=== PATIENT | female | born 1955 | race Caucasian/White ===

== ENCOUNTER → 2017-04-25 | Outpatient (CLI) | payer BC ==
--- NOTE | 2017-04-25 13:23 | RAD ---
DATE: 04/25/2017. EXAM: DIGITAL SCREEN BILAT W/CAD HISTORY: Routine screening COMPARISON: Previous study from 08/24/2012 This study was interpreted with the benefit of Computerized Aided Detection (CAD). FINDINGS: Breast Density: SCATTERED The breast parenchyma shows scattered fibroglandular densities. Breast parenchyma level B. The skin and nipples are within normal limits. No suspicious calcifications, spiculated masses or areas of architectural distortion. Benign bilateral calcifications. IMPRESSION: No mammographic evidence of malignancy. No significant change from previous mammogram from 2012. BI-RADS CATEGORY: 2 BENIGN FINDING(S) RECOMMENDED FOLLOW-UP: 12M 12 MONTH FOLLOW-UP PQRS compliance statement: Patient information was entered into a reminder system with a target due date 04/25/2018 for the next mammogram. Mammography is a sensitive method for finding small breast cancers, but it does not detect them all and is not a substitute for careful clinical examination. A negative mammogram does not negate a clinically suspicious finding and should not result in delay in biopsying a clinically suspicious abnormality. "Our facility is accredited by the [employer] Mammography Program."
== END | disposition home or self-care (01) ==
LOC: MAMMO 12:50
PROVIDERS: ATTEND Family Medicine
DX: Z12.31 Encounter for screening mammogram for malignant neoplasm of breast (principal)
CPT/HCPCS: G0202; 77067

== ENCOUNTER → 2017-08-17 | Outpatient (CLI) | payer BC | END | disposition home or self-care (01) | LOC: CT 12:51 | DX: M47.892 Other spondylosis, cervical region (principal); M48.02 Spinal stenosis, cervical region | CPT/HCPCS: 72125 ==

== ENCOUNTER → 2018-06-21 | Outpatient (CLI) | payer BC ==
--- NOTE | 2018-06-21 10:55 | RAD ---
CT study chest without contrast Clinical indications: Hemoptysis. COMPARISON: June 20, 2012. TECHNIQUE: Noncontrast helical CT scanning of the chest was performed. Without contrast, the sensitivity to detect organ pathology is decreased. PQRS compliance Statement One or more of the following individualized dose reduction techniques were utilized for this study: 1. Automated exposure control 2. Adjustment of the mA and/or kV according to patient size 3. Use of iterative reconstruction technique FINDINGS: Again seen are mediastinal lymph nodes which have not changed significantly from the previous study. Calcified left hilar lymph nodes are seen due to old granulomatous disease. No focal aneurysmal dilatation of the thoracic aorta is seen. Calcified atheromatous disease of the coronary arteries is seen. The heart size is normal and no pericardial effusion is seen. No pleural effusion or pneumothorax is seen. Chronic consolidative infiltrate is seen within the anterior basal segment of the lateral right lower lobe. This was seen previously and is unchanged. There is new ill-defined infiltrate within the basal segments of the right lower lobe. There is new ill-defined infiltrate within the posterior segment of the right upper lobe. There is new ill-defined infiltrate within the medial segment right middle lobe. There is new ill-defined infiltrate within the inferior segment of the lingula. Calcified granuloma of the lingula is again evident. No new lung mass is seen. Septation of the right mainstem bronchus and bronchus intermedius is again evident. The proximal bronchial tree is patent. However, there is a new small nodule present within the anterior aspect of the distal mainstem bronchus at the origin of the left upper lobe bronchus. This measures 4 mm in size. No adrenal mass is seen. No lytic process is evident. Degenerative spondylosis is seen throughout the thoracic spine and upper lumbar spine. IMPRESSION: New bilateral ill-defined small lung infiltrates consistent with infection or inflammation. There is peribronchial thickening bilaterally consistent with bronchitis. Mild dilatation of distal bronchi within the right lower lobe consistent with mild bronchiectasis. There is a chronic septation within the right mainstem bronchus and bronchus intermedius. There is a new finding of a 4 mm round filling defect involving the anterior wall of the distal left mainstem bronchus at the origin of the left upper lobe bronchus. This may represent mucus or a polyp. Chronic nodular lung infiltrate within the lateral aspect of the anterior basal segment of the right lower lobe which is stable. Calcified atheromatous disease of the coronary arteries. Electronically signed by: Ephraim Jasmine MD (06/21/2018 10:51 AM) [id number]
== END | disposition home or self-care (01) ==
LOC: CT 09:56
PROVIDERS: ATTEND Family Medicine
DX: R04.2 Hemoptysis (principal); R91.8 Other nonspecific abnormal finding of lung field; I70.0 Atherosclerosis of aorta
CPT/HCPCS: 71250

== ENCOUNTER 2018-10-13 15:57 | Observation (INO) | payer BC ==
[~2018-10-13] VITALS: Ht 154.9 cm; Wt 51.5 kg
[2018-10-13 16:40] LABS: BASO # 0.1 x10^3/uL (0.0-0.2); BASO % 1 % (0-3); EOS # 0.2 x10^3/uL (0.0-0.7); EOS % 2 % (0-3); HEMATOCRIT 27.9 % (36.0-47.0); HEMOGLOBIN 8.8 g/dL (12.0-15.5); LYMPH # 3.3 x10^3/uL (1.0-4.8); LYMPH % 32 % (24-48); MEAN CORPUSCULAR HEMOGLOBIN 25 pg (25-35); MEAN CORPUSCULAR HGB CONC 32 g/dL (31-37); MEAN CORPUSCULAR VOLUME 80 fL (79-100); MONO # 0.7 x10^3/uL (0.0-1.1); MONO % 7 % (0-9); NEUT # 5.9 x10^3uL (1.8-7.7); NEUT % 58 % (31-73); PLATELET COUNT 278 x10^3/uL (140-400); RED BLOOD COUNT 3.48 x10^6/uL (3.50-5.40); RED CELL DISTRIBUTION WIDTH 16.4 % (11.5-14.5); WHITE BLOOD COUNT 10.3 x10^3/uL (4.0-11.0)
[2018-10-13 16:47] LABS: BILIRUBIN,URINE NEGATIVE (NEG); CLARITY,URINE CLEAR; COLOR,URINE YELLOW; NITRITE,URINE NEGATIVE (NEG); PROTEIN,URINE NEGATIVE (NEG-TRACE); UROBILINOGEN,URINE 0.2 mg/dL (0.2 mg/dL)
[2018-10-13 16:54] LABS: PROTHROMBIN TIME PATIENT 13.3 SEC (11.7-14.0)
[2018-10-13 16:55] LABS: CALCIUM 9.1 mg/dL (8.5-10.1); CREATININE 0.8 mg/dL (0.6-1.0); POTASSIUM 3.6 mmol/L (3.5-5.1)
[2018-10-13] MEDS ORDERED: NALOXONE 0.4 MG/ML VIAL. IV ONE (17:00)
[2018-10-13] MEDS ORDERED: ALBUTEROL SULFATE 2.5 MG/3 ML NEBU. NEB ONE (17:00)
[2018-10-13 17:02] LABS: ALBUMIN 3.8 g/dL (3.4-5.0); ALBUMIN/GLOBULIN RATIO 1.2 (1.0-1.7); TOTAL BILIRUBIN 0.2 mg/dL (0.2-1.0)
--- NOTE | 2018-10-13 17:03 | RAD ---
Single view chest dated 10/13/2018. Comparison made 01/20/2016. Clinical data indication: Cough and wheezing. Altered mental status. FINDINGS: Single upright portable exam performed. Heart and mediastinal contours are stable. Mild patchy increased density at the right lung base. The lungs are otherwise clear. No consolidation or pleural effusion. No pneumothorax. Pression: No patchy right basilar opacity, likely atelectasis. Electronically signed by: Sudarshan Salter MD (10/13/2018 5:00 PM) [id number]
--- NOTE | 2018-10-13 17:11 | RAD ---
CT head without contrast. CT cervical spine without contrast PQRS statement: CT scans at this facility use dose reduction including either automated exposure control, iterative reconstructions, and /or weight based radiation dosing via mA and kV modification when appropriate to reduce radiation dose to as low as reasonably achievable. HISTORY: Altered mental status. TECHNIQUE: Noncontrast CT imaging of the head and cervical spine multiplanar reconstructions acquired. COMPARISON: CT cervical spine August 17, 2017. CT head findings: No intracranial hemorrhage, mass, hydrocephalus, extra-axial fluid collections or infarction. No acute ischemic changes evident. Orbits, mastoids, paranasal sinuses and bones are unremarkable. IMPRESSION: No acute intracranial CT abnormality. CT cervical spine findings: Advanced arthritis at the C1-C2 atlantodental articulation and joint capsule thickening which may mildly narrow the spinal canal. Precervical junction intact. Cervical vertebral body height and alignment intact. 1 mm anterolisthesis C4 on C5 and 2 mm retrolisthesis C3 on C4 associated with disc disease and facet arthritis. No fracture of the cervical spine. Apical pulmonary emphysema. Cervical disc height loss, disc osteophytes and uncovertebral and facet spurs with spinal canal and neural foraminal stenoses. Paraspinal tissues are unremarkable. Right supraglottic asymmetric soft tissue thickening. IMPRESSION: 1. No acute osseous injury of the cervical spine. 2. Cervical disc disease as described above. 3. Asymmetric soft tissue thickening of the right supraglottic larynx could be inflammatory or neoplastic. Electronically signed by: Cristino Suero MD (10/13/2018 5:08 PM) [id number]
[2018-10-13 17:15] LABS: BACTERIA,URINE 0 /HPF (0-FEW); RBC,URINE 0 /HPF (0-2); WBC,URINE OCC /HPF (0-4)
[2018-10-13 17:24] LABS: AMPHETAMINE/METHAMPHETAMINE NEG (NEG); BARBITURATES NEG (NEG); BENZODIAZEPINES POS (NEG); CANNABINOIDS POS (NEG); COCAINE NEG (NEG); METHADONE NEG (NEG); OPIATES POS (NEG); PHENCYCLIDINE NEG (NEG)
--- NOTE | 2018-10-13 17:39 | PHYS DOC ---
Past Medical History Past Medical History: COPD Additional Past Medical Histor: POOR HISTORIAN Additional Past Surgical Histo: lumbar and neck surgery Alcohol Use: None Drug Use: None Adult General Chief Complaint Chief Complaint: ALTERED MENTAL STATUS HPI HPI Patient is a 63 year old F who was brought up to [facility] by her significant other to have some back xrays done that were ordered by her PCP. Pt reportedly fell out of bed a few weeks ago and has had acute on chronic back pain since that time. Pt was concerned that lying flat for the xrays was going to be painful so she did take pain medicine prior to arrival. Her significant other states it was either 30mg of Oxycontin or 10mg of Percocet. She was getting her xray's and became very groggy and they were having difficult time getting her to respond. Pt was brought to ER as altered mental status. She will awaken to answer questions but immediately falls back asleep. Pt is normally 3 L oxygen dependent for COPD and was placed on 3 L in ER exam room with sats in 80's. When I asked pt if she was hurting anywhere she replied "all over my body". Review of Systems Review of Systems Unable to obtain due to altered mental status. Constitutional: Denies fever or chills Respiratory: Denies cough or shortness of breath [] Cardiovascular: No additional information not addressed in HPI [] GI: Denies abdominal pain, nausea, vomiting, bloody stools or diarrhea [] : Denies dysuria or hematuria [] Musculoskeletal: Denies back pain or joint pain [] Integument: Denies rash or skin lesions [] Neurologic: Denies headache, focal weakness or sensory changes [] Endocrine: Denies polyuria or polydipsia [] All other systems were reviewed and found to be within normal limits, except as documented in this note. Current Medications Current Medications Current Medications Medications (Trade) Dose Ordered Sig/Minnie Start Time Stop Time Status Last Admin Dose Admin Albuterol Sulfate (Ventolin Neb Soln) 2.5 mg 1X ONCE 10/13/18 17:00 10/13/18 17:01 DC 10/13/18 17:12 2.5 MG Methylprednisolone Sodium Succinate (SOLU-Medrol 125MG VIAL) 125 mg 1X ONCE 10/13/18 18:30 10/13/18 18:31 DC 5/17/19 18:33 125 MG Naloxone HCl (Narcan) 0.2 mg 1X ONCE 10/13/18 17:00 10/13/18 17:01 DC 10/13/18 17:12 0.2 MG Allergies Allergies Allergies Coded Allergies Type Severity Reaction Last Updated Verified No Known Drug Allergies 10/13/18 No Physical Exam Physical Exam Constitutional: Well developed, well nourished, no acute distress, non-toxic appearance. Sleepy, difficult to wake. HENT: Gag reflex intact. Eyes: pinpoint pupils, EOMI, conjunctiva normal, no discharge. Neck: Normal range of motion, no tenderness, supple, no stridor. Cardiovascular:Heart rate regular rhythm, no murmur Lungs & Thorax: Diffuse wheezing bilaterally Abdomen: Bowel sounds normal, soft, no tenderness, no masses, no pulsatile masses. Skin: Warm, dry, no erythema, no rash. Back: Low back pain. Extremities: No tenderness, no cyanosis, no clubbing, ROM intact, mild edema of B lower legs. Neurologic: Alert and oriented X 1 to self on arrival, obtunded and will awaken to sternal rub and loud questions, will move all extremities to painful stimulation. Current Patient Data Vital Signs Vital Signs Date Time Temp Pulse Resp B/P (MAP) Pulse Ox O2 Delivery O2 Flow Rate FiO2 10/13/18 18:00 82 19 94 10/13/18 17:13 Nasal Cannula 2.0 10/13/18 16:15 98.5 129/70 (89) 98.5 Lab Values Laboratory Tests Test 10/13/18 16:15 10/13/18 16:30 10/13/18 16:31 Urine Collection Type U cath Urine Color Yellow Urine Clarity Clear Urine pH 5.0 Urine Specific Bennett 1.015 Urine Protein Negative mg/dL (NEG-TRACE) Urine Glucose (UA) Negative mg/dL (NEG) Urine Ketones (Stick) Negative mg/dL (NEG) Urine Blood Negative (NEG) Urine Nitrite Negative (NEG) Urine Bilirubin Negative (NEG) Urine Urobilinogen Dipstick 0.2 mg/dL (0.2 mg/dL) Urine Leukocyte Esterase Negative (NEG) Urine RBC 0 /HPF (0-2) Urine WBC Occ /HPF (0-4) Urine Squamous Epithelial Cells None /LPF Urine Bacteria 0 /HPF (0-FEW) Urine Mucus Slight /LPF Urine Opiates Screen Pos (NEG) Urine Methadone Screen Neg (NEG) Urine Barbiturates Neg (NEG) Urine Phencyclidine Screen Neg (NEG) Urine Amphetamine/Methamphetamine Neg (NEG) Urine Benzodiazepines Screen Pos (NEG) Urine Cocaine Screen Neg (NEG) Urine Cannabinoids Screen Pos (NEG) Urine Ethyl Alcohol Neg (NEG) White Blood Count 10.3 x10^3/uL (4.0-11.0) Red Blood Count 3.48 x10^6/uL (3.50-5.40) L Hemoglobin 8.8 g/dL (12.0-15.5) L Hematocrit 27.9 % (36.0-47.0) L Mean Corpuscular Volume 80 fL (79-100) Mean Corpuscular Hemoglobin 25 pg (25-35) Mean Corpuscular Hemoglobin Concent 32 g/dL (31-37) Red Cell Distribution Width 16.4 % (11.5-14.5) H Platelet Count 278 x10^3/uL (140-400) Neutrophils (%) (Auto) 58 % (31-73) Lymphocytes (%) (Auto) 32 % (24-48) Monocytes (%) (Auto) 7 % (0-9) Eosinophils (%) (Auto) 2 % (0-3) Basophils (%) (Auto) 1 % (0-3) Neutrophils # (Auto) 5.9 x10^3uL (1.8-7.7) Lymphocytes # (Auto) 3.3 x10^3/uL (1.0-4.8) Monocytes # (Auto) 0.7 x10^3/uL (0.0-1.1) Eosinophils # (Auto) 0.2 x10^3/uL (0.0-0.7) Basophils # (Auto) 0.1 x10^3/uL (0.0-0.2) Sodium Level 138 mmol/L (136-145) Potassium Level 3.6 mmol/L (3.5-5.1) Chloride Level 98 mmol/L (98-107) Carbon Dioxide Level 30 mmol/L (21-32) Anion Gap 10 (6-14) Blood Urea Nitrogen 11 mg/dL (7-20) Creatinine 0.8 mg/dL (0.6-1.0) Estimated GFR (Cockcroft-Gault) 72.0 BUN/Creatinine Ratio 14 (6-20) Glucose Level 94 mg/dL (70-99) Calcium Level 9.1 mg/dL (8.5-10.1) Total Bilirubin 0.2 mg/dL (0.2-1.0) Aspartate Amino Transferase (AST) 16 U/L (15-37) Alanine Aminotransferase (ALT) 16 U/L (14-59) Alkaline Phosphatase 94 U/L (46-116) Creatine Kinase 123 U/L (26-192) Creatine Kinase MB (Mass) 1.7 ng/mL (0.0-3.6) Creatine Kinase MB Relative Index 1.4 % (0-4) Troponin I Quantitative < 0.017 ng/mL (0.000-0.055) ON-Suw-S-Type Natriuretic Peptide 176 pg/mL (0-124) H Total Protein 7.0 g/dL (6.4-8.2) Albumin 3.8 g/dL (3.4-5.0) Albumin/Globulin Ratio 1.2 (1.0-1.7) Ethyl Alcohol Level < 10 mg/dL (0-10) Erythrocyte Sedimentation Rate 55 (0-25) H Prothrombin Time 13.3 SEC (11.7-14.0) Prothrombin Time INR 1.0 (0.8-1.1) PTT 32 SEC (24-38) Lactic Acid Level 0.6 mmol/L (0.4-2.0) Ammonia < 10 mcmol/L (11-34) L C-Reactive Protein, Quantitative 17.8 mg/L (0-3.3) H Laboratory Tests 10/13/18 16:30 Laboratory Tests 10/13/18 16:30 EKG EKG EKG at 1623: NSR, nonspecific findings, no STEMI Reviewed by Dr. Mancini. Radiology/Procedures Radiology/Procedures CT head and neck. No acute findings. Soft tissue thickening of supraglottic larynx could be inflammatory or neoplastic. Chest Xray: No acute. Course & Med Decision Making Course & Med Decision Making Pertinent Labs and Imaging studies reviewed. (See chart for details) Pt given low dose narcan and did wake up a little for us but then immediately back to sleep. Drug screen positive for benzo's, opiates and THC. Suspect pt took more of her medicine then usual and her significant other states this is possible since she was worried about the xrays of her back. She does seem to be waking up a little more in ER after neb treatment but still very sleepy and O2 at 91%. Will admit for observation and close monitoring on tele. Will give solumedrol and neb treatments for her COPD, incidental exacerbation. Spoke with Dr. Oleary, who is online facilitator for Dr. Ann. She requested pt be admitted as observation status. Dragon Disclaimer Dragon Disclaimer This electronic medical record was generated, in whole or in part, using a voice recognition dictation system. Departure Departure Impression: Primary Impression: Altered mental status Additional Impressions: Polypharmacy COPD (chronic obstructive pulmonary disease) Disposition: ADMITTED INPATIENT Admitting Physician: Lorraine Oleary Condition: STABLE Referrals: Yasmani ANN MD (PCP) Problem Qualifiers KIANA GARCIA October 13, 2018 17:38
[2018-10-13] MEDS ORDERED: methylPREDNISolone SOD SUCC PF 125 MG/2 ML VIAL. IV ONE (18:30)
[2018-10-13] MEDS ORDERED: ONDANSETRON PF 4 MG/2 ML VIAL. IV PRN (19:00)
--- NOTE | 2018-10-13 19:55 | NUR ---
Pt admitted during the noc with significant other/fiance; Jayme at bedside. Pt lethargic during admission and able to answer questions with assistance of fiance. Pt not aware of taking too much of her pain medication. Pt states has been having low back pain that she has been dealing with and could not get her pain in control. Pt wears oxygen at home. Pt with coarse lungs noted. Pt states using inhalers and breathing treatment at home however could not tell me the drug or dosage. Pt states also taking home medications however not knowing which ones. Pt did have some empty bottles in her purse that she was going to get refilled so able to note in the chart some of her medications. Pt states recently placed on antibiotic from Physician office. Pt states she has been having frequent falls. Pt states her last fall was 2 days ago. Pt instructed to get up with assistance. Pt verbalized understanding. No further complaints at this time. Pt with fiance at bedside during the noc.
[2018-10-13 20:00] VITALS: BP 124/60
[2018-10-13] MEDS: ALBUTEROL SULFATE 2.5 MG/3 ML NEBU. NEB SCH (21:17)
[2018-10-13] MEDS: methylPREDNISolone SOD SUCC PF 40 MG/ML VIAL. IV SCH (22:08)
[2018-10-13 23:00] VITALS: BP 120/54
[2018-10-14 03:00] VITALS: BP 136/65
[2018-10-14] MEDS ORDERED: BENZ-8 PO (04:58)
[2018-10-14] MEDS ORDERED: BUPR150T6 PO (04:58)
[2018-10-14] MEDS ORDERED: HYDR-2145 PO (04:58)
[2018-10-14] MEDS ORDERED: OMEP20CA10 PO (04:58)
[2018-10-14] MEDS ORDERED: antibiotic (04:58)
[2018-10-14] MEDS ORDERED: OXYC10TA PO (04:58)
[2018-10-14] MEDS: methylPREDNISolone SOD SUCC PF 40 MG/ML VIAL. IV SCH ×2 (06:38→13:02)
[2018-10-14 07:20] VITALS: BP 146/65
[2018-10-14] MEDS: ALBUTEROL SULFATE 2.5 MG/3 ML NEBU. NEB SCH ×2 (08:00→11:44)
[2018-10-14 11:00] VITALS: BP 143/60
[2018-10-14] MEDS ORDERED: METH5TAB6 PO (11:25)
[2018-10-14] MEDS ORDERED: ALBU2.5V8 IH (11:25)
[2018-10-14] MEDS ORDERED: OXYC30TA3 PO (11:25)
[2018-10-14] MEDS ORDERED: CRESTOR20 MG PO (11:25)
[2018-10-14] MEDS ORDERED: ALPR2TAB2 PO (11:25)
[2018-10-14] MEDS ORDERED: CEFU500T46 PO (11:25)
[2018-10-14] MEDS ORDERED: OXYC1TAB22 PO ×2 (11:25→11:32)
[2018-10-14] MEDS ORDERED: DULO60CA6 PO (11:25)
[2018-10-14] MEDS ORDERED: LISI10TA2 PO (11:25)
--- NOTE | 2018-10-14 11:39 | PDOC ---
PROGRESS NOTES Subjective Subjective Patient c/o pain "all over", requesting home pain meds. Objective Objective Vital Signs Date Time Temp Pulse Resp B/P (MAP) Pulse Ox O2 Delivery O2 Flow Rate FiO2 10/14/18 08:04 94 Nasal Cannula 2.0 10/14/18 07:20 97.9 89 20 146/65 (92) 97.9 Intake and Output 10/14/18 07:00 # Voids 2 Physical Exam Abdomen: Normal bowel sounds, Soft, No tenderness Heart: Regular rate Extremities: No edema General: Alert, Oriented X3, No acute distress Lungs: Other (coarse BS R base, BS decreased throughout but otherwise CTA) Assessment Assessment Problems Medical Problems: (1) Altered mental status Status: Acute (2) COPD (chronic obstructive pulmonary disease) Status: Acute (3) Polypharmacy Status: Acute Plan Plan of Care 1. Medication overdose - patient was admitted due to decreased LOC in outpatient radiology yesterday. Back to baseline mental status today. States she does not think she took extra medication yesterday but does appear forgetful of her meds. Home today, advised to take meds as prescribed. 2. chronic respiratory failure with COPD - CXR yesterday did show atelectasis vs infiltrate R base. Dr Ann had already started her on Cefuroxime, she is advised to take this as directed. Continue O2 and nebs. 3. chronic back pain - continue her usual po meds for this. 4. chronic anxiety - continue her home medications. 5. HTN - patient's BP was elevated at OV yesterday and Dr Ann started her on Lisinopril but patient now reports she hadn't taken her HCTZ in several days (forgot to tell Dr Ann this). Advised to resume the HCTZ and follow up in office on this. 6. vocal hoarseness - this is new problem for her. CT yesterday did show thickening of R larynx which needs further evaluation. Patient advised of this. Has already been referred to ENT as outpatient, patient encouraged to schedule OV there as soon as possible. 7. anemia - apparently new finding for her, last CBC in our office was last year but was WNL. Follow up as outpatient with Dr Ann on this. 8. hyperthyroidism - recent lab was good, continue Methimazole. Comment Review of Relevant I have reviewed the following items eliazar (where applicable) has been applied. Labs Laboratory Tests Test 5/17/19 16:15 10/13/18 16:30 10/13/18 16:31 Urine Collection Type U cath Urine Color Yellow Urine Clarity Clear Urine pH 5.0 Urine Specific [place] 1.015 Urine Protein Negative mg/dL (NEG-TRACE) Urine Glucose (UA) Negative mg/dL (NEG) Urine Ketones (Stick) Negative mg/dL (NEG) Urine Blood Negative (NEG) Urine Nitrite Negative (NEG) Urine Bilirubin Negative (NEG) Urine Urobilinogen Dipstick 0.2 mg/dL (0.2 mg/dL) Urine Leukocyte Esterase Negative (NEG) Urine RBC 0 /HPF (0-2) Urine WBC Occ /HPF (0-4) Urine Squamous Epithelial Cells None /LPF Urine Bacteria 0 /HPF (0-FEW) Urine Mucus Slight /LPF Urine Opiates Screen Pos (NEG) Urine Methadone Screen Neg (NEG) Urine Barbiturates Neg (NEG) Urine Phencyclidine Screen Neg (NEG) Urine Amphetamine/Methamphetamine Neg (NEG) Urine Benzodiazepines Screen Pos (NEG) Urine Cocaine Screen Neg (NEG) Urine Cannabinoids Screen Pos (NEG) Urine Ethyl Alcohol Neg (NEG) White Blood Count 10.3 x10^3/uL (4.0-11.0) Red Blood Count 3.48 x10^6/uL (3.50-5.40) Hemoglobin 8.8 g/dL (12.0-15.5) Hematocrit 27.9 % (36.0-47.0) Mean Corpuscular Volume 80 fL (79-100) Mean Corpuscular Hemoglobin 25 pg (25-35) Mean Corpuscular Hemoglobin Concent 32 g/dL (31-37) Red Cell Distribution Width 16.4 % (11.5-14.5) Platelet Count 278 x10^3/uL (140-400) Neutrophils (%) (Auto) 58 % (31-73) Lymphocytes (%) (Auto) 32 % (24-48) Monocytes (%) (Auto) 7 % (0-9) Eosinophils (%) (Auto) 2 % (0-3) Basophils (%) (Auto) 1 % (0-3) Neutrophils # (Auto) 5.9 x10^3uL (1.8-7.7) Lymphocytes # (Auto) 3.3 x10^3/uL (1.0-4.8) Monocytes # (Auto) 0.7 x10^3/uL (0.0-1.1) Eosinophils # (Auto) 0.2 x10^3/uL (0.0-0.7) Basophils # (Auto) 0.1 x10^3/uL (0.0-0.2) Sodium Level 138 mmol/L (136-145) Potassium Level 3.6 mmol/L (3.5-5.1) Chloride Level 98 mmol/L (98-107) Carbon Dioxide Level 30 mmol/L (21-32) Anion Gap 10 (6-14) Blood Urea Nitrogen 11 mg/dL (7-20) Creatinine 0.8 mg/dL (0.6-1.0) Estimated GFR (Cockcroft-Gault) 72.0 BUN/Creatinine Ratio 14 (6-20) Glucose Level 94 mg/dL (70-99) Calcium Level 9.1 mg/dL (8.5-10.1) Total Bilirubin 0.2 mg/dL (0.2-1.0) Aspartate Amino Transf (AST/SGOT) 16 U/L (15-37) Alanine Aminotransferase (ALT/SGPT) 16 U/L (14-59) Alkaline Phosphatase 94 U/L (46-116) Creatine Kinase 123 U/L (26-192) Creatine Kinase MB (Mass) 1.7 ng/mL (0.0-3.6) Creatine Kinase MB Relative Index 1.4 % (0-4) Troponin I Quantitative < 0.017 ng/mL (0.000-0.055) FC-Hmy-C-Type Natriuretic Peptide 176 pg/mL (0-124) Total Protein 7.0 g/dL (6.4-8.2) Albumin 3.8 g/dL (3.4-5.0) Albumin/Globulin Ratio 1.2 (1.0-1.7) Ethyl Alcohol Level < 10 mg/dL (0-10) Erythrocyte Sedimentation Rate 55 (0-25) Prothrombin Time 13.3 SEC (11.7-14.0) Prothromb Time International Ratio 1.0 (0.8-1.1) Activated Partial Thromboplast Time 32 SEC (24-38) Lactic Acid Level 0.6 mmol/L (0.4-2.0) Ammonia < 10 mcmol/L (11-34) C-Reactive Protein, Quantitative 17.8 mg/L (0-3.3) Laboratory Tests Test 10/13/18 16:15 10/13/18 16:30 10/13/18 16:31 Urine Collection Type U cath Urine Color Yellow Urine Clarity Clear Urine pH 5.0 Urine Specific [place] 1.015 Urine Protein Negative mg/dL (NEG-TRACE) Urine Glucose (UA) Negative mg/dL (NEG) Urine Ketones (Stick) Negative mg/dL (NEG) Urine Blood Negative (NEG) Urine Nitrite Negative (NEG) Urine Bilirubin Negative (NEG) Urine Urobilinogen Dipstick 0.2 mg/dL (0.2 mg/dL) Urine Leukocyte Esterase Negative (NEG) Urine RBC 0 /HPF (0-2) Urine WBC Occ /HPF (0-4) Urine Squamous Epithelial Cells None /LPF Urine Bacteria 0 /HPF (0-FEW) Urine Mucus Slight /LPF Urine Opiates Screen Pos (NEG) Urine Methadone Screen Neg (NEG) Urine Barbiturates Neg (NEG) Urine Phencyclidine Screen Neg (NEG) Urine Amphetamine/Methamphetamine Neg (NEG) Urine Benzodiazepines Screen Pos (NEG) Urine Cocaine Screen Neg (NEG) Urine Cannabinoids Screen Pos (NEG) Urine Ethyl Alcohol Neg (NEG) White Blood Count 10.3 x10^3/uL (4.0-11.0) Red Blood Count 3.48 x10^6/uL (3.50-5.40) Hemoglobin 8.8 g/dL (12.0-15.5) Hematocrit 27.9 % (36.0-47.0) Mean Corpuscular Volume 80 fL (79-100) Mean Corpuscular Hemoglobin 25 pg (25-35) Mean Corpuscular Hemoglobin Concent 32 g/dL (31-37) Red Cell Distribution Width 16.4 % (11.5-14.5) Platelet Count 278 x10^3/uL (140-400) Neutrophils (%) (Auto) 58 % (31-73) Lymphocytes (%) (Auto) 32 % (24-48) Monocytes (%) (Auto) 7 % (0-9) Eosinophils (%) (Auto) 2 % (0-3) Basophils (%) (Auto) 1 % (0-3) Neutrophils # (Auto) 5.9 x10^3uL (1.8-7.7) Lymphocytes # (Auto) 3.3 x10^3/uL (1.0-4.8) Monocytes # (Auto) 0.7 x10^3/uL (0.0-1.1) Eosinophils # (Auto) 0.2 x10^3/uL (0.0-0.7) Basophils # (Auto) 0.1 x10^3/uL (0.0-0.2) Sodium Level 138 mmol/L (136-145) Potassium Level 3.6 mmol/L (3.5-5.1) Chloride Level 98 mmol/L (98-107) Carbon Dioxide Level 30 mmol/L (21-32) Anion Gap 10 (6-14) Blood Urea Nitrogen 11 mg/dL (7-20) Creatinine 0.8 mg/dL (0.6-1.0) Estimated GFR (Cockcroft-Gault) 72.0 BUN/Creatinine Ratio 14 (6-20) Glucose Level 94 mg/dL (70-99) Calcium Level 9.1 mg/dL (8.5-10.1) Total Bilirubin 0.2 mg/dL (0.2-1.0) Aspartate Amino Transf (AST/SGOT) 16 U/L (15-37) Alanine Aminotransferase (ALT/SGPT) 16 U/L (14-59) Alkaline Phosphatase 94 U/L (46-116) Creatine Kinase 123 U/L (26-192) Creatine Kinase MB (Mass) 1.7 ng/mL (0.0-3.6) Creatine Kinase MB Relative Index 1.4 % (0-4) Troponin I Quantitative < 0.017 ng/mL (0.000-0.055) FZ-Pfu-D-Type Natriuretic Peptide 176 pg/mL (0-124) Total Protein 7.0 g/dL (6.4-8.2) Albumin 3.8 g/dL (3.4-5.0) Albumin/Globulin Ratio 1.2 (1.0-1.7) Ethyl Alcohol Level < 10 mg/dL (0-10) Erythrocyte Sedimentation Rate 55 (0-25) Prothrombin Time 13.3 SEC (11.7-14.0) Prothromb Time International Ratio 1.0 (0.8-1.1) Activated Partial Thromboplast Time 32 SEC (24-38) Lactic Acid Level 0.6 mmol/L (0.4-2.0) Ammonia < 10 mcmol/L (11-34) C-Reactive Protein, Quantitative 17.8 mg/L (0-3.3) Medications Current Medications Albuterol Sulfate (Ventolin Neb Soln) 2.5 mg 1X ONCE NEB Last administered on 10/13/18at 17:12; Start 10/13/18 at 17:00; Stop 10/13/18 at 17:01; Status DC Naloxone HCl (Narcan) 0.2 mg 1X ONCE IV Last administered on 10/13/18at 17:12; Start 10/13/18 at 17:00; Stop 10/13/18 at 17:01; Status DC Methylprednisolone Sodium Succinate (SOLU-Medrol 125MG VIAL) 125 mg 1X ONCE IV Last administered on 10/13/18at 18:33; Start 10/13/18 at 18:30; Stop 10/13/18 at 18:31; Status DC Ondansetron HCl (Zofran) 4 mg PRN Q8HRS PRN IV NAUSEA/VOMITING; Start 10/13/18 at 19:00; Stop 10/14/18 at 18:59 Albuterol Sulfate (Ventolin Neb Soln) 2.5 mg Q4HRS W/A NEB Last administered on 10/14/18at 08:00; Start 10/13/18 at 22:00 Methylprednisolone Sodium Succinate (SOLU-Medrol 40MG VIAL) 40 mg Q8HRS IV Last administered on 10/14/18at 06:38; Start 10/13/18 at 22:00; Stop 10/14/18 at 14:01 Active Scripts Active Percocet 10-325 Mg Tablet (Oxycodone/Acetaminophen) 1 Each Tablet 1 Tab PO PRN Q6HRS PRN 30 Days Reported Methimazole 5 Mg Tablet 5 Mg PO 4X/WEEK Proventil Hfa Inhaler (Albuterol Sulfate) 6.7 Gm Hfa.aer.ad 1 Puff IH PRN QID PRN Cymbalta (Duloxetine Hcl) 60 Mg Capsule.dr 1 Cap PO DAILY Crestor (Rosuvastatin Calcium) 20 Mg Tablet 1 Tab PO DAILY Oxycodone Hcl Immed.release (Oxycodone Hcl) 30 Mg Tablet 30 Mg PO PRN BID PRN Xanax (Alprazolam) 2 Mg Tablet 2 Mg PO QID PRN Lisinopril 10 Mg Tablet 1 Tab PO DAILY Cefuroxime (Cefuroxime Axetil) 500 Mg Tablet 1 Tab PO BID Bupropion Xl (Bupropion Hcl) 150 Mg Tab.er.24h 1 Tab PO DAILYWBKFT Omeprazole 20 Mg Capsule.dr 1 Cap PO DAILY Benzonatate 100 Mg Capsule 1-2 Cap PO TID PRN Hydrochlorothiazide Tablet (Hydrochlorothiazide) 25 Mg Tablet 25 Mg PO DAILY Vitals/I & O Vital Sign - Last 24 Hours 10/13/18 10/13/18 10/13/18 10/13/18 16:15 17:00 17:13 18:00 Temp 98.5 98.5 Pulse 77 84 82 Resp 19 B/P (MAP) 129/70 (89) Pulse Ox 98 98 94 94 O2 Delivery Room Air Nasal Cannula O2 Flow Rate 2.0 10/13/18 10/13/18 10/13/18 10/13/18 18:36 19:22 19:55 20:00 Temp 98.7 98.7 Pulse 87 90 87 Resp 18 B/P (MAP) 124/60 (81) Pulse Ox 94 91 97 O2 Delivery Nasal Cannula Nasal Cannula O2 Flow Rate 4.0 2.0 10/13/18 10/14/18 10/14/18 10/14/18 23:00 03:00 07:20 08:04 Temp 98.4 97.7 97.9 98.4 97.7 97.9 Pulse 77 85 89 Resp 20 B/P (MAP) 120/54 (76) 136/65 (88) 146/65 (92) Pulse Ox 98 94 93 94 O2 Delivery Nasal Cannula Nasal Cannula Nasal Cannula Nasal Cannula O2 Flow Rate 2.0 2.0 2.0 2.0 VIN RIZVI MD October 14, 2018 11:39
[2018-10-14] MEDS ORDERED: ALPRAZolam 1 MG TABLET PO PRN (11:45)
[2018-10-14] MEDS ORDERED: DULoxetine HCL 30 MG CAPSULE.DR PO SCH (12:00)
[2018-10-14] MEDS ORDERED: CEFDINIR 300 MG CAPSULE PO SCH (12:00)
[2018-10-14] MEDS ORDERED: buPROPion XL 150 MG TAB.ER.24H. PO SCH (12:00)
[2018-10-14] MEDS ORDERED: hydroCHLOROthiazide 25 MG TABLET PO SCH (12:00)
--- NOTE | 2018-10-14 14:38 | NUR ---
Patient discharged via wheelchair from hospital to private vehicle to home accompanied by fiance and sister, in stable condition.
--- NOTE | 2018-10-14 15:42 | SSS ---
ADMIT DATE: 10/14/2018 CHIEF COMPLAINT: Decreased level of consciousness. HISTORY OF PRESENT ILLNESS: The patient is a 63-year-old female with chronic respiratory failure and chronic pain who was brought to the Emergency Department with the above concern. The patient was seen by Dr. Ann in our office earlier on the day of admission. She had complained of an increase in her chronic back pain and increased cough, and Dr. Ann had ordered outpatient x-rays for evaluation of these issues. When the patient was in the Radiology Department getting these x-rays, she was found to have a decreased level of consciousness and was very difficult to arouse. She was transferred to the Emergency Department. Evaluation there showed that she was arousable, but fell back to sleep quickly. Her oxygen saturation was satisfactory on oxygen per nasal cannula. Urine drug screen was positive for opiates and benzodiazepines, both of which she is prescribed, was also positive for marijuana, but was otherwise negative. The patient was given some Narcan and admitted for further care. PAST MEDICAL HISTORY: Chronic respiratory failure due to chronic obstructive pulmonary disease, chronic anxiety, chronic back pain, hyperthyroidism, hyperlipidemia, GERD. PAST SURGICAL HISTORY: Lumbar laminectomy, LUMA/BSO, tonsillectomy, appendectomy, , bilateral tubal ligation, cervical laminectomy, right shoulder surgery. ALLERGIES: The patient has no known drug allergies. HOME MEDICATIONS: Albuterol p.r.n., Xanax 2 mg q.i.d. p.r.n., Wellbutrin 150 mg daily, cefuroxime 500 mg b.i.d., the patient had just been started on this in our office; Cymbalta 60 mg daily, hydrochlorothiazide 25 mg daily, methimazole 5 mg 4 days weekly, omeprazole 20 mg daily, oxycodone immediate release 30 mg b.i.d. p.r.n., Percocet 10/325 one q.6 hours p.r.n., Crestor 20 mg daily. FAMILY HISTORY: Noncontributory. SOCIAL HISTORY: The patient has a common law . She continues to smoke cigarettes. She is disabled. REVIEW OF SYSTEMS: The patient does not have fever or chills. She has not had chest pain or palpitations. She did note an increase in her chronic cough. She has had a hoarse voice recently, which is unusual for her. She denies abdominal pain, nausea or vomiting. Her anxiety has been stable with her usual medications. She had a fall out of bed recently and has had an increase in her chronic back pain since then. PHYSICAL EXAMINATION: GENERAL: The patient is alert and oriented x 3, resting comfortably in bed, in no acute distress. She is alert, oriented and appropriate. HEENT: PERRL, EOMI, sclerae clear. Oropharynx: Mucous membranes moist. Voice is somewhat hoarse. NECK: Supple, without lymphadenopathy. CHEST: Breath sounds decreased throughout. Few coarse breath sounds in the right base, otherwise clear to auscultation. No wheezes heard. CARDIOVASCULAR: Regular rhythm. ABDOMEN: Soft, nontender, normoactive bowel sounds are present. EXTREMITIES: Bilateral lower extremities are without edema. HOSPITAL COURSE: The patient has remained stable overnight. She has received no sedating medications and is at her baseline mental status today. The patient does not feel that she took extra medication yesterday prior to her x-ray, but did tell the Emergency Room doctor that she had perhaps taken something as she anticipated more pain with lying down for the x-ray. She will be discharged to home today and she is advised to take her medications as prescribed and not increase the dosage of anything. She has chronic respiratory failure with chronic obstructive pulmonary disease and ongoing tobaccoism. The chest x-ray yesterday did show atelectasis versus infiltrate in the right base. Dr. Ann had just started her on cefuroxime for treatment of this. 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 She is to continue her usual pain medicine for her chronic back pain and her chronic anxiety. The patient has hypertension. Her blood pressure was elevated at her office visit yesterday and Dr. Ann started her on lisinopril due to this. The patient now reports that she had not taken her hydrochlorothiazide in several days, but forgot to tell Dr. Ann this. She is advised to resume the hydrochlorothiazide daily and have her blood pressure rechecked on this. Her vocal hoarseness is a new problem for her. Dr. Ann referred her to Dr. Mami Corley's office as an outpatient for evaluation of this. The CT of the head and cervical spine yesterday showed asymmetrical soft tissue thickening of the right supraglottic larynx, thought to be inflammatory versus neoplastic. The patient was informed of this finding and strongly advised to follow up with Dr. Corley as an outpatient as soon as possible. The patient's lab at admission was otherwise remarkable only for a microcytic anemia with a hemoglobin of 8.8. This is apparently a new finding for her, previous labs in our office showed normal hemoglobin. This will need to have further evaluation as an outpatient with Dr. Ann. Recent labs showed the patient's TSH to be within normal limits and she is advised to continue her present dose of methimazole. FINAL DIAGNOSES: 1. Medication overdose. 2. Chronic respiratory failure with chronic obstructive pulmonary disease. 3. Chronic back pain. 4. Chronic anxiety. 5. Hypertension. 6. Vocal hoarseness. 7. Anemia. 8. Hyperthyroidism. DISCHARGE MEDICATIONS: Remain the same as at admission. FOLLOWUP: Follow up with Dr. Mami Corley as soon as possible. Follow up with Dr. Ann as scheduled in 1 month. VIN RIZVI MD DR: KHOI/ham JOB#: [id number] / [id number] SRINIVAS
--- NOTE | 2018-10-15 11:28 | EKG ---
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
== END 2018-10-14 14:38 | disposition home or self-care (01) ==
LOC: ER 15:57 → 6 SOUTH 18:30
PROVIDERS: ADMIT Family Medicine; ATTEND Family Medicine
DX: T50.901A Poisoning by unspecified drugs, medicaments and biological substances, accidental (unintentional), initial encounter (principal); M54.9 Dorsalgia, unspecified; G89.29 Other chronic pain; R41.82 Altered mental status, unspecified; J44.9 Chronic obstructive pulmonary disease, unspecified; J96.10 Chronic respiratory failure, unspecified whether with hypoxia or hypercapnia; F41.9 Anxiety disorder, unspecified; E78.5 Hyperlipidemia, unspecified; K21.9 Gastro-esophageal reflux disease without esophagitis; E05.90 Thyrotoxicosis, unspecified without thyrotoxic crisis or storm; F17.210 Nicotine dependence, cigarettes, uncomplicated; R49.0 Dysphonia; I10 Essential (primary) hypertension; W06.XXXA Fall from bed, initial encounter; D50.9 Iron deficiency anemia, unspecified
CPT/HCPCS: 36415; 70450; 71045; 72125; 80053; 80307; 81001; 82140; 82553; 83605; 83880; 84484; 85025; 85610; 85651; 85730; 86140; 87040; 93005; 94640; 96374; 96375; 96376; 97162; 99284; G0378; G0480; J2310; J2920; J2930; J7613; G0379

== ENCOUNTER → 2018-10-13 | Outpatient (CLI) | payer BC ==
[~2018-10-13] MED LIST: ALBU2.5V8 IH; ALPR2TAB2 PO; BENZ-8 PO; BUPR150T6 PO; CEFU500T46 PO; CRESTOR20 MG PO; DULO60CA6 PO; HYDR-2145 PO; LISI10TA2 PO; METH5TAB6 PO; OMEP20CA10 PO; OXYC10TA PO; OXYC1TAB22 PO; OXYC30TA3 PO; antibiotic
--- NOTE | 2018-10-13 16:06 | RAD ---
LUMBAR SPINE MIN 4V History: Low back pain Comparison: March 27, 2012 Findings: 5 views lumbar spine are submitted. There is moderate levoscoliosis centered upon the lumbar spine. There is multilevel advanced degenerative disc disease throughout the lumbar spine. Vertebral body stature is overall preserved. There is possible very minimal posterior subluxation of L3 relative to L4, L2 relative to L3, and L1 relative to L2 poorly characterized due to scoliosis. There is multilevel facet degenerative change greater inferiorly of the lumbar spine. There is mild left lateral subluxation L3 relative L4 and very mild right lateral subluxation L1 relative L2. Impression: 1. There is moderate lumbar levoscoliosis. There is multilevel advanced lumbar degenerative disc disease, also multilevel facet degenerative change. There is multilevel mild abnormal alignment. Electronically signed by: Rikki Vásquez MD (10/13/2018 4:03 PM) [id number]
== END | disposition home or self-care (01) ==
LOC: RAD 15:04
PROVIDERS: ATTEND Family Medicine
DX: M51.36 Other intervertebral disc degeneration, lumbar region (principal); M47.816 Spondylosis without myelopathy or radiculopathy, lumbar region; M41.86 Other forms of scoliosis, lumbar region; M53.2X6 Spinal instabilities, lumbar region
CPT/HCPCS: 72110; 82962

== ENCOUNTER → 2018-10-25 | Outpatient (CLI) | payer BC ==
[2018-10-14 11:00] VITALS: BP 143/60
[~2018-10-25] MED LIST changes: +IOHEXOL 300 MG/ML 100ML VIAL. IV ONE
--- NOTE | 2018-10-25 16:31 | KCIC ---
Examination: CT soft tissue neck and chest with IV contrast HISTORY: History of hoarseness, smoking COMPARISON: None available TECHNIQUE: Axial CT images of the soft tissue neck and chest were performed with IV contrast and coronal sagittal reformats are performed Exposure: One or more of the following individualized dose reduction techniques were utilized for this examination: 1. Automated exposure control 2. Adjustment of the mA and/or kV according to patient size 3. Use of iterative reconstruction technique FINDINGS: The intracranial portion grossly appears unremarkable. Parotid glands, parapharyngeal spaces grossly appears unremarkable. Small bilateral cervical level 2 lymph nodes identified with the largest measuring 8 mm in the right. There is a enhancing centrally necrotic masslike density identified in the right supraglottic region abutting the vocal cords inferiorly and extending superiorly, best visualized on series 2 image #40 and measuring 2.3 x 1.7 cm suspicious for malignancy. The mass causes slight deviation of the vocal cord to the right with mild narrowing. The mass is superior and deep to the right thyroid cartilage. The mass appears to abut the inferior aspect of the epiglottis extending anterior to the epiglottis inferiorly. The thyroid gland grossly appears unremarkable. Small supraclavicular lymph nodes identified with largest measuring 1.1 cm and the left. Few prominent mediastinal lymph nodes are identified the largest measuring 1 cm in the pretracheal region. Heart size grossly appears unremarkable. Mild lung emphysematous changes. Faint airspace opacities identified in the right upper lobe and right lung base likely atelectasis or scarring changes. There is a small nodule identified in the left lingula of the lung measuring 5 mm. The visualized liver, demonstrates mild decreased attenuation likely hepatic steatosis. The visualized spleen, adrenals grossly appears unremarkable. Moderate to severe degenerative changes thoracic spine. IMPRESSION: 1. 2.3 cm enhancing centrally necrotic mass identified in the right supraglottic region as described above suspicious for malignancy. 2. Small lymph nodes identified in the cervical level 3 region and in the mediastinum could be reactive or metastatic. Minimal prominent left supraclavicular lymph node. Recommend PET CT scan for further evaluation 3. 5 mm nodule identified in the left lingula of the lung. Follow-up ultrasound is recommended follow-up CT in 3-6 months. 4. Mild hepatic steatosis. Electronically signed by: Jimmie Beavers MD (10/25/2018 4:28 PM) [place] [id number]
== END | disposition home or self-care (01) ==
LOC: KCIC CT 10:54
PROVIDERS: ATTEND Family Medicine
DX: D38.0 Neoplasm of uncertain behavior of larynx (principal); K76.0 Fatty (change of) liver, not elsewhere classified; J43.9 Emphysema, unspecified
CPT/HCPCS: 70491; 71260; Q9967

== ENCOUNTER → 2018-11-01 | Outpatient (CLI) | payer BC ==
[2018-10-14 11:00] VITALS: BP 143/60
[~2018-11-01] MED LIST changes: -IOHEXOL 300 MG/ML 100ML VIAL. IV ONE
--- NOTE | 2018-11-01 12:39 | RAD ---
EXAM: CHEST 2 VIEWS. HISTORY: Chronic obstructive pulmonary disease, sore throat. COMPARISON: 10/13/2018. FINDINGS: Frontal and lateral views of the chest are obtained. The left hemidiaphragm is mildly elevated. There is mild basilar atelectasis. Hyperinflation on the right is consistent with chronic obstructive pulmonary disease. There is no pneumothorax or pleural effusion. The heart is not enlarged. There is a mild lumbar levocurvature. IMPRESSION: 1. Chronic obstructive pulmonary disease. No confluent infiltrates. Electronically signed by: Hussein Thayer MD (11/01/2018 12:35 PM) [facility]
== END | disposition home or self-care (01) ==
LOC: RAD 08:38
PROVIDERS: ATTEND Family Medicine
DX: J98.11 Atelectasis (principal); J44.9 Chronic obstructive pulmonary disease, unspecified
CPT/HCPCS: 71046

== ENCOUNTER → 2018-11-02 | Outpatient (CLI) | payer BC ==
[2018-10-14 11:00] VITALS: BP 143/60
--- NOTE | 2018-11-02 16:42 | RAD ---
EXAM: PET/CT SKULL BASE TO MID THIGH. HISTORY: Laryngeal cancer staging. History of cervical cancer. COMPARISON: 10/25/2018. TECHNIQUE: CT was performed from the skull base through the mid thighs for the purposes of attenuation correction. 12.3 mCi F-18 fluorodeoxyglucose (FDG) was administered intravenously. After an uptake period, positron emission tomography was performed from the skull base through the mid thighs. The PET and CT data were fused and interpreted in combination a dedicated workstation. Blood glucose level was 114 mg/dL at the time of FDG administration. FINDINGS: There is hypermetabolism primarily along the right aspect of the larynx, extending both anteriorly and posteriorly, consistent with the primary mass. Maximum SUV is 28.3. A small right jugulodigastric lymph node is involved. Activity throughout the left neck is longitudinal and not clearly associated with enlarged lymph nodes. This is likely muscular. Mediastinal lymph nodes are involved. A lower right paratracheal node demonstrates maximum SUV 10.1. Additional right paratracheal, subcarinal and right hilar nodes are involved. Additional muscular uptake extends throughout the left paraspinous muscles and pelvic girdle. No metastatic disease is appreciated inferior to the diaphragm. Additional CT findings include calcified mediastinal lymph nodes consistent with old granulomatous disease. Bronchial wall thickening is consistent with acute or chronic bronchitis. There is mild to moderate paraseptal emphysema in the apices. There are calcified granulomas in the spleen. The uterus is surgically absent. IMPRESSION: 1. Hypermetabolic mass along the right aspect of the larynx extending anteriorly and posteriorly with maximum SUV 28.3, consistent with the known primary. 2. One small right jugulodigastric lymph node is involved. 3. 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
== END | disposition home or self-care (01) ==
LOC: PETSC 08:13
PROVIDERS: ATTEND Family Medicine
DX: D38.0 Neoplasm of uncertain behavior of larynx (principal); J43.9 Emphysema, unspecified; L92.8 Other granulomatous disorders of the skin and subcutaneous tissue; Z85.41 Personal history of malignant neoplasm of cervix uteri
CPT/HCPCS: 78815; A9552

== ENCOUNTER → 2018-11-17 | Outpatient (CLI) | payer BC, MEDICARE ==
[2018-11-09 15:50] VITALS: BP 112/71
[~2018-11-17] MED LIST changes: +GADOTERATE 7.5 MMOL/15ML VIAL. IVP ONE
--- NOTE | 2018-11-17 12:01 | RAD ---
MRI Brain with and without contrast History: Headaches, lung cancer Technique: Multiplanar, multi sequential pre and postcontrast MR imaging was performed of the brain. Comparison: None Findings: There is some motion degradation. There is no evidence of recent infarct or cytotoxic edema. The ventricles, sulci, and cisterns are within normal limits in size and configuration. There is no significant midline shift, intraaxial mass effect, or focal abnormal extra-axial fluid collection. There is minimal T2 and FLAIR hyperintense signal abnormality of the supratentorial periventricular white matter bilaterally, also small focus left tiff. There is no significant hemosiderin deposition of the brain parenchyma. There is no nodular parenchymal or leptomeningeal enhancement. There is preservation of the major intracranial flow-voids at the skull base. The cerebellar tonsils are normal in location. There is no significant abnormality of the pineal gland or pituitary gland. There is minimal patchy left ethmoid air cell and right maxillary sinus mucosal thickening. There is somewhat disconjugate gaze. There is patchy tcnq-zo-[id number] fluid of the left mastoid air cells, minimally on the right. There is preserved marrow signal of the clivus. There is signal abnormality along the posterior dens which appears eroded. There is likely mild spinal stenosis near C1. There is also some fluid near the dens. Inferior tip of the clivus is subluxed posteriorly relative to the dens. Impression: 1. There is no abnormal intracranial enhancement. Mild T2 and FLAIR hyperintense signal abnormality of the supratentorial parenchyma and left tiff is nonspecific, may be due to chronic microvascular ischemic disease. 2. There is signal abnormality along the posterior dens concerning for pannus as can be associated with rheumatoid arthritis or crystalline disease, degree of spinal stenosis at this level. There is abnormal alignment at level of cervical medullary junction Electronically signed by: Rikki Vásquez MD (11/17/2018 11:59 AM) [id number]
== END | disposition home or self-care (01) ==
LOC: MRI 10:03
PROVIDERS: ATTEND Internal Medicine Hematology & Oncology
DX: R51 Headache (principal); C34.90 Malignant neoplasm of unspecified part of unspecified bronchus or lung; C32.9 Malignant neoplasm of larynx, unspecified; J34.89 Other specified disorders of nose and nasal sinuses; R59.1 Generalized enlarged lymph nodes; R68.89 Other general symptoms and signs
CPT/HCPCS: 70553; A9575

== ENCOUNTER 2018-11-20 08:38 | Outpatient (CLI) | payer MEDICARE, BC ==
[2018-11-20] VITALS (8 sets, daily range): BP systolic 111–136; BP diastolic 62–71
[~2018-11-20] VITALS: Ht 149.9 cm; Wt 54.0 kg
[~2018-11-20 08:38] MED LIST changes: -GADOTERATE 7.5 MMOL/15ML VIAL. IVP ONE
[2018-11-20 09:11] LABS: BASO % 1 % (0-3); EOS # 0.2 x10^3/uL (0.0-0.7); EOS % 3 % (0-3); HEMATOCRIT 30.6 % (36.0-47.0); HEMOGLOBIN 9.6 g/dL (12.0-15.5); LYMPH # 1.9 x10^3/uL (1.0-4.8); LYMPH % 32 % (24-48); MEAN CORPUSCULAR HEMOGLOBIN 25 pg (25-35); MEAN CORPUSCULAR HGB CONC 31 g/dL (31-37); MEAN CORPUSCULAR VOLUME 80 fL (79-100); MONO # 0.3 x10^3/uL (0.0-1.1); MONO % 6 % (0-9); NEUT # 3.5 x10^3uL (1.8-7.7); NEUT % 58 % (31-73); PLATELET COUNT 272 x10^3/uL (140-400); RED BLOOD COUNT 3.85 x10^6/uL (3.50-5.40); RED CELL DISTRIBUTION WIDTH 16.9 % (11.5-14.5)
[2018-11-20 09:25] LABS: PROTHROMBIN TIME PATIENT 13.3 SEC (11.7-14.0)
[2018-11-20] MEDS ORDERED: LIDOCAINE 1%/EPI 1:100,000 20 ML VIAL. ONE (09:42)
[2018-11-20] MEDS ORDERED: MIDAZOLAM HCL/PF 2 MG/2 ML VIAL. ONE (09:56)
[2018-11-20] MEDS ORDERED: fentaNYL PF VIAL 100 MCG/2 ML VIAL ONE (09:56)
[2018-11-20] MEDS ORDERED: MIDAZOLAM HCL/PF 2 MG/2 ML VIAL. IV ONE (10:30)
[2018-11-20] MEDS ORDERED: LIDOCAINE 1%/EPI 1:100,000 20 ML VIAL. IJ ONE (10:30)
[2018-11-20] MEDS ORDERED: fentaNYL PF VIAL 100 MCG/2 ML VIAL IV ONE (10:30)
--- NOTE | 2018-11-20 12:28 | RAD ---
Procedure: Ultrasound and fluoroscopically guided placement of left internal jugular power port.. 11/20/2018 12:24 PM Clinical Indication: LARYNGEAL CANCER Sedation: Conscious sedation was administered for 30 minutes. The patient was monitored by a qualified independent observer throughout the time of sedation. Please refer to the medical record for exact doses of medications utilized to achieve moderate sedation. Fluoroscopy time: 2.1 minutes Dose area product:1 Gycm2 Consent: The procedure was explained in its entirety to the patient or the patients designated representative government relations by a member of the treatment team, including a discussion of the risks, benefits and commonly accepted alternatives to the procedure, as well as the expected consequences of no therapy whatsoever. Discussion of the risks included, but was not limited to, those that are most frequent and those that are rare but possibly severe or life-threatening, as well as the possibility of unforeseen complications. Technique and Findings: All elements of maximal sterile barrier technique including the use of a cap, mask, sterile gown, sterile gloves, large sterile sheet, appropriate hand hygiene, and 2% chlorhexidine for cutaneous antisepsis (or acceptable alternative antiseptic per current guidelines) were followed for this procedure. Following informed consent, and a timeout procedure, the patient was prepped and draped in the usual sterile fashion. Ultrasound interrogation of the left revealed patency and compressibility of the left internal jugular vein. A 21-gauge micropuncture was then used to gain access to this vein under ultrasound guidance. A hard copy ultrasound image was recorded. The needle was exchanged over a wire for a sheath. A 1 inch incision was made several centimeters inferior to the venotomy site. A catheter was tunneled from this site dermatotomy site in the neck. Catheter was advanced through peel-away sheath such that its tip was in the proximal right atrium with the patient supine. The catheter was trimmed to length and connected to the port reservoir. The port was found to flush and aspirate normally. The wound was closed in layers using 4-0 Vicryl suture. Sterile dressings were applied. Impression: Successful ultrasound and fluoroscopically guided placement of a left internal jugular PowerPort
--- NOTE | 2018-11-20 12:52 | NUR ---
Discharge Note: LUIZ RITTER Discharge instructions and discharge home medications reviewed with Patient and a copy given. All questions have been answered and understanding verbalized. The following instructions and handouts were given: Discontinued lines and drains: SL to R forearm removed intact. Dressing to L chest port site remains clean and dry. Patient discharged to home with family via wheelchair ANN-MARIE SANCHEZ Addendum: 11/20/18 at 1305 by RAYMUNDO LOGAN RN Amended: Links added.
== END 2018-11-20 12:30 | disposition home or self-care (01) ==
LOC: INTRAD 08:38
PROVIDERS: ATTEND Internal Medicine Hematology & Oncology
DX: C32.9 Malignant neoplasm of larynx, unspecified (principal); R59.0 Localized enlarged lymph nodes; Z88.6 Allergy status to analgesic agent; Z88.8 Allergy status to other drugs, medicaments and biological substances
CPT/HCPCS: 36415; 36561; 76937; 77001; 85025; 85610; 85730; C1751; C1892; J0690; J1644; J2250; J3010; J3490; 99152; 99153

== ENCOUNTER 2019-01-24 08:32 | Outpatient (CLI) | payer MEDICARE, BC ==
[2019-01-24] VITALS (7 sets, daily range): BP systolic 100–122; BP diastolic 60–75
[~2019-01-24] VITALS: Ht 149.9 cm; Wt 49.4 kg
[2019-01-24 09:28] LABS: BASO % 1 % (0-3); EOS # 0.1 x10^3/uL (0.0-0.7); EOS % 3 % (0-3); HEMATOCRIT 34.3 % (36.0-47.0); HEMOGLOBIN 11.2 g/dL (12.0-15.5); LYMPH # 1.8 x10^3/uL (1.0-4.8); LYMPH % 37 % (24-48); MEAN CORPUSCULAR HEMOGLOBIN 29 pg (25-35); MEAN CORPUSCULAR HGB CONC 33 g/dL (31-37); MEAN CORPUSCULAR VOLUME 88 fL (79-100); MONO # 0.3 x10^3/uL (0.0-1.1); MONO % 7 % (0-9); NEUT # 2.6 x10^3/uL (1.8-7.7); NEUT % 53 % (31-73); PLATELET COUNT 224 x10^3/uL (140-400); RED CELL DISTRIBUTION WIDTH 19.2 % (11.5-14.5)
[2019-01-24] MEDS ORDERED: OXAP600T PO (09:36)
[2019-01-24] MEDS ORDERED: OXYC1TAB22 PO (09:36)
[2019-01-24] MEDS ORDERED: NYST100054 PO (09:36)
[2019-01-24] MEDS ORDERED: SUCR1ORA11 PO (09:36)
[2019-01-24] MEDS ORDERED: LIDOCAINE 1%/EPI 1:100,000 20 ML VIAL. ONE (09:37)
[2019-01-24] MEDS ORDERED: LIDOCAINE 1%/EPI 1:100,000 20 ML VIAL. SQ ONE (09:45)
[2019-01-24] MEDS ORDERED: MIDAZOLAM HCL/PF 2 MG/2 ML VIAL. IV ONE (09:45)
[2019-01-24] MEDS ORDERED: fentaNYL PF VIAL 100 MCG/2 ML VIAL IV ONE (09:45)
[2019-01-24 09:47] LABS: PROTHROMBIN TIME PATIENT 12.5 SEC (11.7-14.0)
--- NOTE | 2019-01-24 10:43 | RAD ---
Procedure: Fluoroscopic guided removal of a Port-A-Cath Clinical Indication: 63-year-old with laryngeal cancer, no longer requiring Port-A-Cath. Sedation: Conscious sedation was administered with a total intraprocedural [id number]-[id number] time of 27 minutes. The patient was monitored by a qualified independent observer throughout the time of sedation. Please refer to the medical record for exact doses of medications utilized to achieve moderate sedation. Antibiotics: Antibiotic was administered intravenously within 1 hour of the procedure start time. Exposure: Kerma-Area Product: 0.3 Gycm2 Sterility: All elements of maximal sterile barrier technique including the use of a cap, mask, sterile gown, sterile gloves, large sterile sheet, appropriate hand hygiene, and 2% chlorhexidine for cutaneous antisepsis (or acceptable alternative antiseptic per current guidelines) were followed for this procedure. If ultrasound guidance was utilized, sterile ultrasound techniques were followed including use of a sterile probe cover. Consent: The procedure was explained in its entirety to the patient or the patients designated tax representative by a member of the treatment team, including a discussion of the risks, benefits and commonly accepted alternatives to the procedure, as well as the expected consequences of no therapy whatsoever. Discussion of the risks included, but was not limited to, those that are most frequent and those that are rare but possibly severe or life-threatening, as well as the possibility of unforeseen complications. Technique and Findings: Following informed consent, the patient was prepped and draped in usual sterile fashion. Preliminary fluoroscopic spot view reveals an intact left IJ Port-A-Cath. 1% lidocaine was used to achieve local anesthesia over the left chest wall. A small dermatotomy was made. Blunt dissection techniques were used to free the port from the pocket. The port was removed in its entirety. The pocket was copiously irrigated with vancomycin impregnated sterile saline then closed with deep interrupted and running subcuticular 4-0 Vicryl suture. Post procedural fluoroscopic spot view revealed no residual radiopaque foreign body. Complications: No Impression: 1. Fluoroscopic guided port removal as described.
--- NOTE | 2019-01-24 12:14 | PDOC ---
MODERATE SEDATION ASSESSMENT RISKS/ALTERNATIVES Risks/Alternatives Risks and alternatives of this type of sedation and procedure discussed with: RISK/ALTERNATIVES: Patient H & P ON CHART H & P H & P on chart and reviewed for co-morbid conditions and appropriate labs. H&P ON CHART: Yes STATUS PREG STATUS ASSESSED: Yes MEDS/ALLERGIES REVIEWED Meds/Allergies Reviewed Medications and Allergies including time and route of recently administered narcotics and sedatives. MEDS/ALLERGIES REVIEWED: Yes ASA RATING ASA RATING: II AIRWAY ASSESSMENT Airway Assessment Airway patency, oral function limitations, presence of caps, crowns, dentures, partials, and ability to extend neck assessed. AIRWAY ASSESSMENT: Yes MALLAMPATI SCORE MALLAMPATI SCORE: II PRE-SEDATION ASSESSMENT PRE-SEDATION ASSESSMENT: Yes NITESH BLACK MD Jan 24, 2019 12:14
--- NOTE | 2019-01-24 12:15 | PDOC ---
BRIEF OPERATIVE NOTE Pre-Op Diagnosis Port removal Post-Op Diagnosis same Procedure Performed Port removal Surgeon Ramila Anesthesia Type: MAC, Conscious Sedation Findings Port removal Complications No immediate NITESH BLACK MD Jan 24, 2019 12:15
--- NOTE | 2019-01-24 12:16 | PDOC1 ---
History and Physical Date of Procedure Date of Admission History of Present Illness Reason for Visit Laryngeal cancer Past Medical History Past Medical History see nursing pre-op assessment Current Medications Current Medications Current Medications Lidocaine/ Epinephrine (LIDOCAINE 1%-EPI 1:100,000 Multi-Dose) 20 ml STK-MED ONCE .ROUTE ; Start 01/24/19 at 09:37; Stop 01/24/19 at 09:37; Status DC Midazolam HCl (Versed) 2 mg 1X ONCE IV Last administered on 01/24/19at 10:24; Start 01/24/19 at 09:45; Stop 01/24/19 at 09:46; Status DC Fentanyl Citrate (Fentanyl 2ml Vial) 100 mcg 1X ONCE IV Last administered on 01/24/19at 10:24; Start 01/24/19 at 09:45; Stop 01/24/19 at 09:46; Status DC Lidocaine/ Epinephrine (LIDOCAINE 1%-EPI 1:100,000 Multi-Dose) 20 ml 1X ONCE SQ Last administered on 01/24/19at 10:24; Start 01/24/19 at 09:45; Stop 01/24/19 at 09:46; Status DC Active Scripts Active Reported Nystatin 100,000 Unit/1 Ml Oral.susp 5 Ml PO TID PRN Daypro (Oxaprozin) 600 Mg Tablet 600 Mg PO DAILY Sucralfate 1 Gm/10 Ml Oral.susp 10 Ml PO PRN QID Percocet 10-325 Mg Tablet (Oxycodone/Acetaminophen) 1 Each Tablet 1 Tab PO PRN Q6HRS PRN Methimazole 5 Mg Tablet 5 Mg PO 4X/WEEK Proventil Hfa Inhaler (Albuterol Sulfate) 6.7 Gm Hfa.aer.ad 1 Puff IH PRN QID PRN Cymbalta (Duloxetine Hcl) 60 Mg Capsule.dr 1 Cap PO DAILY Crestor (Rosuvastatin Calcium) 20 Mg Tablet 1 Tab PO DAILY Oxycodone Hcl Immed.release (Oxycodone Hcl) 30 Mg Tablet 30 Mg PO BID Xanax (Alprazolam) 2 Mg Tablet 2 Mg PO QID PRN Bupropion Xl (Bupropion Hcl) 150 Mg Tab.er.24h 1 Tab PO DAILYWBKFT Omeprazole 20 Mg Capsule.dr 1 Cap PO DAILY Benzonatate 100 Mg Capsule 1-2 Cap PO TID PRN Hydrochlorothiazide Tablet (Hydrochlorothiazide) 25 Mg Tablet 25 Mg PO DAILY Allergies Allergies: Coded Allergies: morphine (Verified Adverse Reaction, Mild, Nausea and Vomiting, 01/24/19) Physical Exam Vital Signs Vital Signs Date Time Temp Pulse Resp B/P (MAP) Pulse Ox O2 Delivery O2 Flow Rate FiO2 01/24/19 12:05 75 14 98 Nasal Cannula 3.0 01/24/19 09:32 98.7 111/60 (77) 98.7 Other see nursing pre-op assessment Assessment Assessment Port removal Plan Plan Port removal NITESH BLACK MD Jan 24, 2019 12:16
== END 2019-01-24 12:56 | disposition home or self-care (01) ==
LOC: INTRAD 08:32
PROVIDERS: ATTEND Internal Medicine Hematology & Oncology
DX: Z45.2 Encounter for adjustment and management of vascular access device (principal); C32.9 Malignant neoplasm of larynx, unspecified; Z79.01 Long term (current) use of anticoagulants; Z88.6 Allergy status to analgesic agent
CPT/HCPCS: 36415; 36590; 77001; 85025; 85610; 99152; 99153; J2250; J3010; J3490

== ENCOUNTER → 2019-03-13 | Outpatient (CLI) | payer MEDICARE, BC ==
[2019-01-24 12:05] VITALS: BP 110/64
[~2019-03-13] MED LIST changes: +IOHEXOL 300 MG/ML 100ML VIAL. IV ONE; +NYST100054 PO; +OXAP600T PO; +SUCR1ORA11 PO
--- NOTE | 2019-03-14 10:21 | RAD ---
Examination: CT NECK CHEST W/CONT History: Oral and lung cancer Comparison/Correlation: 10/25/2018 CT neck and chest with contrast, 11/02/2018 PET/CT exam Findings: Axial images of the neck and chest were obtained following IV contrast. Sagittal and coronal reformatted images were provided. Posterior fossa is unremarkable. Globes are unremarkable. Parotid and submandibular glands are normal. The pharynx is symmetric and unremarkable. Epiglottis is normal. Thyroid gland is normal. Marked decrease in size of the supraglottic mass is evident. Soft tissue density at the site of the previously well demonstrated mass is evident measuring up to 1.4 cm x 0.5 cm on axial image 41 no new masses identified. Decrease in size of several lymph nodes evident. No enlarged cervical lymph nodes. No new cervical masses. Remodeling of the atlantoaxial joint is notable with pannus similar to the prior exam. Enlarged right paratracheal lymph nodes are present with central low attenuation concerning for necrotic components in the interval. The largest of the right lower paratracheal lymph nodes is 1.6 cm x 1.3 cm. Precarinal lymph nodes also present. Subcarinal necrotic-appearing lymph node measuring 2 cm x 1.2 cm is present and this also is increased in size in the interval. Nonenlarged aorticopulmonary window region lymph nodes are present. Right hilar lymph node measuring 1.3 cm x 1 cm is new in the interval. Mass or lymph node abutting the right atrial appendage level superficially is present on axial image 34 currently measuring 1.6 cm x 1.3 cm. It is notably increased in size in the interval. Circumferential soft tissue density mass about the right upper lobe bronchus with associated luminal narrowing is evident. Circumferential luminal narrowing and complete effacement of secondary bronchi also noted. Patchy nodular infiltrates are noted severe to this mass measuring 2.4 cm x 2.4 cm on axial image 24. Longitudinally, these patchy nodular infiltrates extending 3.6 cm. There is a new nodule in the lateral right upper lung field axial image 21 measuring 0.4 cm in diameter. Calcified nodules involving the lingula are present. Partially visualized upper abdomen is unremarkable. Severe multilevel disc space narrowing of the cervical and thoracic spine is evident. Retrolisthesis of C3 in relation to C4 is similar to the prior exam. Sclerotic findings of a low thoracic and upper lumbar spine in particular is noted similar to the previous exam with significant disc space narrowing. Impression: Significant decrease in the supraglottic mass in the interval. Minimal residual soft tissue density at the site of the mass is evident. Decreased cervical lymphadenopathy. Notable increase in lymphadenopathy of the superior mediastinum and right hilum. Patchy nodular right hilar and suprahilar infiltrates are new in the interval. Encasement of the right upper lobe bronchus is new in the interval with soft tissue density evident. New pulmonary nodule of concern for metastasis. Electronically signed by: Farzad Mason MD (03/14/2019 10:18 AM) [facility]
== END | disposition home or self-care (01) ==
LOC: CT 09:31
PROVIDERS: ATTEND Internal Medicine Hematology & Oncology
DX: C34.11 Malignant neoplasm of upper lobe, right bronchus or lung (principal); C32.9 Malignant neoplasm of larynx, unspecified; R59.0 Localized enlarged lymph nodes; R91.1 Solitary pulmonary nodule; R91.8 Other nonspecific abnormal finding of lung field
CPT/HCPCS: 70491; 71260; Q9967

== ENCOUNTER → 2019-05-03 | Outpatient (CLI) | payer MEDICARE, BC ==
[2019-01-24 12:05] VITALS: BP 110/64
[~2019-05-03] MED LIST changes: -ALBU2.5V8 IH; +CONTRAST GIVEN. MC PRN; +OMEP-229 PO; -OMEP20CA10 PO; +OXYC10TA46 PO; +PROVENTIL HFA6.7 GM IH
--- NOTE | 2019-05-03 15:49 | RAD ---
CT STUDY OF THE NECK WITH CONTRAST CT STUDY OF THE CHEST WITH CONTRAST Clinical indications: History of supraglottic mass. Lung cancer. Follow-up. TECHNIQUE: After IV infusion of 75 cc of Omnipaque 300, helical CT scanning of the neck and chest were performed. PQRS compliance Statement One or more of the following individualized dose reduction techniques were utilized for this study: 1. Automated exposure control 2. Adjustment of the mA and/or kV according to patient size 3. Use of iterative reconstruction technique COMPARISON: March 13, 2019. NECK CT: Soft tissue tissue thickening of the larynx mentioned previously is unchanged. No enlarging soft tissue mass is present here. No new or enlarging cervical lymphadenopathy is evident. The parotid and submandibular salivary glands are unremarkable. The adenoids are not abnormally thickened. There is no sublingual tonsillar hypertrophy present. The palatine tonsils are not abnormally enlarged. No opacification of paranasal sinuses or middle ear cavities or mastoid sinuses is seen. No lytic process is evident. IMPRESSION: Stable neck CT. No enlarging soft tissue mass or cervical lymphadenopathy is evident. CHEST CT: Mediastinal lymphadenopathy is evident. The largest lymph node is in the right paratracheal region and measures 21 mm. This same lymph node measured 18 mm previously. Precarinal lymph node measures 17 mm. This is unchanged. The smaller lymph nodes have not changed significantly. The right hilar soft tissue thickening contiguous with the right upper lobe lung mass has increased in size. Together, the transverse dimension of this mass is 52 mm and the AP dimension is 31 mm. On the previous study, similar measurements were 34 mm transversely and 19 mm in AP dimension. Therefore, the mass has grown in size. There is additional nodularity and consolidative lung infiltrate within the right upper lobe extending from the mass. The right upper lobe bronchus is severely narrowed and encased by the mass. There is soft tissue thickening seen extending around the bronchus intermedius which is mildly narrowed and the origin of the right middle lobe bronchus is narrowed. There is new infiltrate or atelectasis within the right middle lobe. There is a new lung nodule within the lateral inferior right lower lobe seen on series 4 and image 42 measuring 6 mm. On image 31 series 4, there is 5 mm lung nodule within the lingula left upper lobe. This was seen previously and is unchanged. On the previous study, this nodule appeared calcified consistent with a granuloma. There is mild old nodular lung infiltrate or atelectasis within the inferior segment of the lingula. On image 37, there is a small lung nodule within the left lateral lower lobe which is unchanged. Within the right lateral posterior costophrenic angle and image 43, there is a small lung nodule present which is stable. No pleural effusion or pneumothorax is seen. The right upper lobe lung mass and soft tissue thickening of the right hilum extends around the lateral aspect of the right upper lobe pulmonary artery. No focal aneurysmal dilatation or dissection of the thoracic aorta is seen. The heart size is normal and no pericardial effusion is evident. Mild calcified atheromatous disease of the coronary arteries is seen. No adrenal mass is evident. No lytic process is seen. IMPRESSION: Increase in right hilar and right upper lobe lung mass with an increase in encasement of the right upper lobe bronchus and narrowing of the bronchus intermedius and origin of the right middle lobe bronchus. Increase in nodular lung infiltrates of the right upper lobe. New lung infiltrate or atelectasis of the right middle lobe. New right lateral lower lobe lung nodule. The other lung nodules are stable. Mediastinal lymphadenopathy. Increase in size of right paratracheal lymph node. Electronically signed by: Ephraim Jasmine MD (05/03/2019 3:47 PM) [facility] [place]
== END | disposition home or self-care (01) ==
LOC: CT 08:41
PROVIDERS: ATTEND Radiology Radiation Oncology
DX: C34.11 Malignant neoplasm of upper lobe, right bronchus or lung (principal); R59.0 Localized enlarged lymph nodes; R91.8 Other nonspecific abnormal finding of lung field; I25.10 Atherosclerotic heart disease of native coronary artery without angina pectoris; I10 Essential (primary) hypertension; Z87.891 Personal history of nicotine dependence; Z90.89 Acquired absence of other organs; Z90.710 Acquired absence of both cervix and uterus
CPT/HCPCS: 70491; 71260; Q9967

== ENCOUNTER → 2019-08-03 | Outpatient (CLI) | payer BC, MEDICARE ==
[2019-01-24 12:05] VITALS: BP 110/64
[~2019-08-03] MED LIST changes: -CONTRAST GIVEN. MC PRN; -IOHEXOL 300 MG/ML 100ML VIAL. IV ONE; -OMEP-229 PO; +OMEP20CA16 PO; -SUCR1ORA11 PO; +SUCR1ORA14 PO
--- NOTE | 2019-08-03 18:02 | RAD ---
Nuclear medicine whole body bone scan History: Malignant neoplasm of lung. Staging. Comparison: FDG PET/CT, skull base to upper thighs November 02, 2018. CT neck and chest with contrast 05/03/2019. There are no more recent relevant comparison exams. Technique: Examination performed after intravenous administration of 26 mCi Technetium 99m MDP. Images of the whole body were obtained in the anterior and posterior projections after routine delay. Findings: Tracer uptake in the spine is moderately heterogeneous. There is increased tracer uptake in the mid to lower thoracic spine and lumbar spine. There is left convexity lumbar scoliosis. There is multilevel degenerative change of the thoracic and lumbar spine with disc space narrowing and reactive endplate sclerosis on CT. There is lumbar facet hypertrophy. This could account for the tracer uptake but superimposed osteoblastic metastatic disease is difficult to exclude. Several ribs demonstrate patchy increased tracer uptake. No definitive correlate on the prior CT. There is increased tracer uptake localizing to the left hip. This is nonspecific. Increased tracer uptake acromioclavicular, glenohumeral, and sternoclavicular is probably degenerative. Mildly increased tracer uptake of the right lateral mid cervical spine is often degenerative. Tracer distribution in the soft tissues appears physiologic. IMPRESSION: 1. There is patchy increased tracer uptake of several bilateral ribs. Pattern does not appear posttraumatic. Metastatic disease cannot be excluded. Suggest correlation with CT. 2. Increased tracer uptake of the left hip, nonspecific. Suggest correlation with radiographs. Electronically signed by: Chris Lala MD (08/03/2019 5:59 PM) [id number]
== END | disposition home or self-care (01) ==
LOC: NM 08:05
PROVIDERS: ATTEND Family Medicine
DX: M47.815 Spondylosis without myelopathy or radiculopathy, thoracolumbar region (principal); M48.05 Spinal stenosis, thoracolumbar region; M41.86 Other forms of scoliosis, lumbar region; M89.38 Hypertrophy of bone, other site; C34.90 Malignant neoplasm of unspecified part of unspecified bronchus or lung
CPT/HCPCS: 78306; A9503